=== PATIENT | female | born 1995 | race Caucasian/White ===

== ENCOUNTER 2021-04-19 22:13 | Day surgery (SDC) | payer BC ==
[2021-04-19 22:46] VITALS: BMI 36.6
[2021-04-19] MEDS ORDERED: hydrALAZINE 20 MG/ML VIAL SLOW IVP PRN (23:12)
== END 2021-04-19 23:30 | disposition home or self-care (01) ==
LOC: CSHLD/OP 22:13
PROVIDERS: ATTEND Obstetrics & Gynecology
DX: O99.891 Other specified diseases and conditions complicating pregnancy (principal); N89.8 Other specified noninflammatory disorders of vagina; O24.410 Gestational diabetes mellitus in pregnancy, diet controlled; Z3A.34 34 weeks gestation of pregnancy; Z88.0 Allergy status to penicillin
CPT/HCPCS: 87480; 87510; 87660

== ENCOUNTER 2021-05-12 14:14 | Inpatient (IN) | payer BC, OTHER ==
[~2021-05-12 14:14] MED LIST: Bupivacaine 0.25% HCL 30 ML VIAL ONE; ePHEDrine Sulfate 50 MG/10 ML VIAL ONE
[2021-05-12] MEDS ORDERED: hydrALAZINE 20 MG/ML VIAL SLOW IVP PRN (14:32)
[2021-05-12] MEDS ORDERED: Misoprostol 200 MCG TAB PR PRN (14:32)
[2021-05-12] MEDS ORDERED: Ondansetron PF 4 MG/2 ML Vial IVP PRN (14:32)
[2021-05-12] MEDS ORDERED: Docusate 100 MG CAP PO PRN (14:32)
[2021-05-12] MEDS ORDERED: Carboprost 250 MCG/ML AMP IM PRN (14:32)
[2021-05-12] MEDS ORDERED: Methylergonovine 0.2 MG/ML VIAL IM PRN (14:32)
[2021-05-12] MEDS ORDERED: Diphenoxylate HCl/Atropine Tablet PO PRN ×2 (14:32)
[2021-05-12] MEDS ORDERED: HYDROcodone/Acetaminophen 5/325 mg Tablet PO PRN ×2 (14:32)
[2021-05-12] MEDS ORDERED: Ibuprofen 800 MG TAB PO PRN (14:32)
[2021-05-12] MEDS ORDERED: Lidocaine 1% (PF) 30 ML VIAL SC PRN (14:32)
[2021-05-12] MEDS ORDERED: Promethazine HCl 25 MG/ML VIAL IM PRN (14:32)
[2021-05-12] MEDS ORDERED: NS w/ Oxytocin 30 units 500 ML IV SCH ×2 (14:45)
[2021-05-12] MEDS ORDERED: NS w/ Oxytocin 30 units 500 ML IVPB SCH (14:45)
[2021-05-12 15:16] VITALS: BMI 38.1
[2021-05-12 15:52] LABS: Hemoglobin 11.5 g/dL (12.0-15.5); Mean Corpuscular HGB CONC 34.6 g/dL (32.0-36.0); Mean Corpuscular Hemoglobin 30.1 pg (27.0-33.0); Mean Corpuscular Volume 86.9 fl (81.6-98.3); Mean Platelet Volume 12.8 fl (7.4-10.4); Platelet Count 120 10x3/uL (150-450); RBC Distribution Width 13.2 % (11.5-14.5); Red Blood Cell (RBC) Count 3.82 10x6/uL (3.90-5.03); White Blood Cell (WBC) Count 7.8 10x3/uL (3.5-10.5)
[2021-05-12 16:13] LABS: ALT (SGPT) 25 U/L (8-55); AST (SGOT) 20 U/L (5-34); Albumin 3.7 g/dL (3.5-5.0); Alkaline Phosphatase 121 U/L (40-110); Anion Gap 13 mmol/L (10-20); BUN (Urea Nitrogen) 7 mg/dL (7.0-18.7); Bilirubin, Total 0.4 mg/dL (0.2-1.2); Calc. Creatinine Clearance 250 mL/min (70-130); Calcium 8.9 mg/dL (7.8-10.44); Carbon Dioxide 20 mmol/L (22-29); Chloride 106 mmol/L (98-107); Globulin 3.2 g/dL (2.4-3.5); Glucose 99 mg/dL (70-105); Potassium 3.7 mmol/L (3.5-5.1); Protein, Total 6.9 g/dL (6.0-8.3); Sodium 135 mmol/L (136-145)
[2021-05-12 16:46] LABS: Hep B Surf Ag Non-Reactive S/CO (NonReactive); Syphilis Antibody Nonreactive (Nonreactive); Syphilis Antibody Index 0.04 S/CO (<1.00 Non-Reactive)
[2021-05-12 17:12] LABS: Creatinine, Urine 240.35 mg/dL (47-110)
[2021-05-12] MEDS: Misoprostol 100 MCG TAB VAG SCH (17:34)
[2021-05-12 17:54] LABS: HBSAg Index 0.18 S/CO (0-0.99)
[2021-05-12] MEDS ORDERED: Zolpidem Tartrate 5 MG TAB PO SCH (21:45)
[2021-05-13] MEDS: Acetaminophen 500 MG TAB PO PRN (03:19)
[2021-05-13] MEDS: Lactated Ringer's 1,000 ML IV SCH (03:21)
[2021-05-13] MEDS: Misoprostol 100 MCG TAB VAG SCH (06:10)
[2021-05-13] MEDS: Misoprostol 100 MCG TAB PO SCH ×2 (11:00→15:58)
[2021-05-13 12:34] LABS: SARS-CoV-2 PCR by NAA DETECTED (NotDetected)
[2021-05-13] MEDS: Butorphanol Tartrate 1 MG/ML VIAL SLOW IVP PRN ×2 (19:35→20:40)
[2021-05-13] MEDS ORDERED: Fentanyl 2 mcg/Bup 0.1% Cadd 100 ML ONE (20:21)
[2021-05-13] MEDS ORDERED: ePHEDrine Sulfate 50 MG/10 ML VIAL SLOW IVP PRN (22:47)
[2021-05-13] MEDS ORDERED: Acetaminophen 325 MG TAB PO PRN (22:47)
[2021-05-13] MEDS ORDERED: diphenhydrAMINE 50 MG/ML VIAL IVP PRN (22:47)
[2021-05-13] MEDS ORDERED: Promethazine HCl 25 MG/ML VIAL IM PRN (22:47)
[2021-05-13] MEDS ORDERED: Hydrocerin (Eucerin) Cream 120 gm Jar TOP PRN (22:47)
[2021-05-13] MEDS ORDERED: Lactated Ringer's 500 ML IV PRN (22:47)
[2021-05-13] MEDS ORDERED: Naloxone HCl 0.4 mg/ml Vial IVP PRN ×2 (22:47)
[2021-05-13] MEDS ORDERED: Ondansetron PF 4 MG/2 ML Vial IVP PRN (22:47)
[2021-05-13] MEDS ORDERED: Fentanyl 2 mcg/Bupivacaine 0.1% Cassette 100 ML EPIDURAL SCH (23:00)
[2021-05-13] MEDS ORDERED: Communication Order-Pharmacy FS SCH (23:00)
[2021-05-14] MEDS ORDERED: Misoprostol 200 MCG TAB ONE (01:28)
[2021-05-14] MEDS: Acetaminophen 500 MG TAB PO PRN (06:04)
[2021-05-14] MEDS ORDERED: diphenhydrAMINE 25 MG CAP PO PRN (08:17)
[2021-05-14] MEDS ORDERED: Promethazine HCl 25 MG/ML VIAL IM PRN (08:17)
[2021-05-14] MEDS ORDERED: Measles/Mumps/Rubella 10 MCG/0.5 ML VIAL SC ONE (08:17)
[2021-05-14] MEDS ORDERED: Methylergonovine 0.2 MG/ML VIAL IM PRN (08:17)
[2021-05-14] MEDS ORDERED: NS w/ Oxytocin 30 units 500 ML IV SCH (08:17)
[2021-05-14] MEDS ORDERED: Bisacodyl 10 MG SUPP PR PRN (08:17)
[2021-05-14] MEDS ORDERED: Boostrix 0.5 ML (Tdap) VIAL IM ONE (08:17)
[2021-05-14] MEDS ORDERED: Zolpidem Tartrate 5 MG TAB PO PRN (08:17)
[2021-05-14] MEDS ORDERED: hydrALAZINE 20 MG/ML VIAL SLOW IVP PRN (08:17)
[2021-05-14] MEDS ORDERED: Lanolin Ointment 7 GM TUBE TOP PRN (08:17)
[2021-05-14] MEDS ORDERED: Varicella virus, LIVE 0.5 ML VIAL SC ONE (08:17)
[2021-05-14] MEDS ORDERED: Preparation H Ointment 28 GM TUBE PR PRN (08:17)
[2021-05-14] MEDS ORDERED: HYDROcodone/Acetaminophen 5/325 mg Tablet PO PRN ×2 (08:17)
[2021-05-14] MEDS ORDERED: Benzocaine-Menthol 82.5 ML CAN TOP PRN (08:17)
[2021-05-14] MEDS ORDERED: Milk Of Magnesia 30 ML UDCUP PO PRN (08:17)
[2021-05-14] MEDS ORDERED: Ondansetron PF 4 MG/2 ML Vial IVP PRN (08:17)
[2021-05-14] MEDS ORDERED: Ferrous Sulfate 325 MG TAB PO SCH (08:30)
[2021-05-14] MEDS ORDERED: Ibuprofen 800 MG TAB PO SCH (08:45)
[2021-05-14] MEDS: Docusate 100 MG CAP PO SCH ×2 (08:52→20:28)
[2021-05-14] MEDS: Prenatal Vitamin 1 TAB PO SCH (08:52)
[2021-05-14] MEDS: Misoprostol 100 MCG TAB VAG SCH ×3 (10:24→10:27)
[2021-05-14] MEDS: Lactated Ringer's 1,000 ML IV SCH ×2 (10:25→10:27)
[2021-05-14] MEDS: Misoprostol 100 MCG TAB PO SCH (10:26)
[2021-05-14] MEDS: Ferrous Sulfate 325 MG TAB PO SCH (17:19)
[2021-05-14] MEDS: Ibuprofen 800 MG TAB PO SCH ×2 (17:48→23:50)
[2021-05-15 06:37] LABS: Mean Corpuscular HGB CONC 33.8 g/dL (32.0-36.0); Mean Corpuscular Hemoglobin 30.4 pg (27.0-33.0); Platelet Count 119 10x3/uL (150-450); RBC Distribution Width 13.2 % (11.5-14.5); Red Blood Cell (RBC) Count 3.29 10x6/uL (3.90-5.03); White Blood Cell (WBC) Count 8.1 10x3/uL (3.5-10.5)
[2021-05-15] MEDS: Ferrous Sulfate 325 MG TAB PO SCH (07:43)
[2021-05-15] MEDS: Ibuprofen 800 MG TAB PO SCH (09:45)
[2021-05-15] MEDS: Docusate 100 MG CAP PO SCH (09:45)
[2021-05-15] MEDS: Prenatal Vitamin 1 TAB PO SCH (09:46)
[2021-05-15 11:15] VITALS: BP 125/79; TEMP 97.7
== END 2021-05-15 14:20 | disposition home or self-care (01) | DRG 805 ==
LOC: CSHLD 14:14 → CSHANTE 05-14 06:42
PROVIDERS: ADMIT Obstetrics & Gynecology; ATTEND Obstetrics & Gynecology
PROC: 10E0XZZ Delivery of Products of Conception, External Approach (ICD-10-PCS; principal; 2021-05-15)
PROC: 10907ZC Drainage of Amniotic Fluid, Therapeutic from Products of Conception, Via Natural or Artificial Opening (ICD-10-PCS; 2021-05-15)
PROC: 3E0P7VZ Introduction of Hormone into Female Reproductive, Via Natural or Artificial Opening (ICD-10-PCS; 2021-05-15)
PROC: 3E033VJ Introduction of Other Hormone into Peripheral Vein, Percutaneous Approach (ICD-10-PCS; 2021-05-15)
PROC: 0UQMXZZ Repair Vulva, External Approach (ICD-10-PCS; 2021-05-15)
DX: O14.04 Mild to moderate pre-eclampsia, complicating childbirth (principal); U07.1 COVID-19; Z37.0 Single live birth; O98.52 Other viral diseases complicating childbirth; O24.429 Gestational diabetes mellitus in childbirth, unspecified control; O71.82 Other specified trauma to perineum and vulva; Z3A.37 37 weeks gestation of pregnancy; Z88.0 Allergy status to penicillin
CPT/HCPCS: 36415; 51702; 80053; 82570; 84156; 85027; 86780; 86850; 86900; 86901; 87340; J0595; J2590; J7030; J7120; S0020; U0003; U0005

== ENCOUNTER 2025-03-06 17:35 | Emergency (ER) | payer OTHER ==
[2025-03-06 19:29] LABS: #Basophils 0.04 10x3/uL (0.0-0.2); #Eosinophils 0.22 10x3/uL (0.0-0.5); #Monocytes 0.52 10x3/uL (0.0-1.1); #Neutrophils 5.40 10x3/uL (1.5-8.4); %Basophils 0.5 % (0.0-2.0); %Eosinophils 2.8 % (0.0-6.0); %Lymphocytes 20.4 % (18.0-47.0); %Monocytes 6.7 % (0.0-10.0); %Neutrophils 69.3 % (40.0-75.0); Hematocrit 38.0 % (34.9-44.5); Hemoglobin 13.2 g/dL (12.0-15.5); Mean Corpuscular Hemoglobin 29.4 pg (27.0-33.0); Mean Corpuscular Volume 84.6 fL (81.6-98.3); Platelet Count 241 10x3/uL (150-450); Red Blood Cell (RBC) Count 4.49 10x6/uL (3.90-5.03); White Blood Cell (WBC) Count 7.79 10x3/uL (3.5-10.5)
[2025-03-06 19:47] LABS: ALT (SGPT) 33 U/L (Less than 34); AST (SGOT) 25 U/L (11-34); Albumin 4.5 g/dL (3.1-4.5); Alkaline Phosphatase 52 U/L (40-110); Anion Gap 10 mmol/L (10-20); BUN (Urea Nitrogen) 12 mg/dL (7.0-18.7); Bilirubin, Total 0.3 mg/dL (0.3-1.2); CK (CPK) 51 U/L (29-168); Calc. Creatinine Clearance 0 mL/min (70-130); Calcium 9.4 mg/dL (7.8-10.44); Carbon Dioxide 28 mmol/L (22-29); Chloride 105 mmol/L (98-107); Globulin 2.7 g/dL (2.4-3.5); Glucose 81 mg/dL (70-105); Magnesium 2.0 mg/dL (1.6-2.6); Potassium 4.1 mmol/L (3.5-5.1); Sodium 139 mmol/L (136-145)
[2025-03-06 19:51] LABS: Troponin I Less than 0.010 ng/mL (< 0.028)
== END 2025-03-06 19:55 | disposition home or self-care (01) ==
LOC: CSHERS 17:35
DX: T75.4XXA Electrocution, initial encounter (principal); W86.8XXA Exposure to other electric current, initial encounter
CPT/HCPCS: 36415; 80053; 82550; 83605; 83735; 84484; 85025; 93005; 99283